=== PATIENT | female | born 1930 | race African-American/Black ===

== ENCOUNTER 2017-01-31 12:30 | Inpatient (IN) ==
[2017-01-31] MEDS ORDERED: DEXTROSE 50% 25 GM/50 ML VIAL IV PRN (12:46)
[2017-01-31] MEDS ORDERED: ALBUTEROL 2.5 MG/3 ML NEB RESP TX PRN (12:46)
[2017-01-31] MEDS ORDERED: GLUCAGON 1 MG VIAL IM PRN (12:46)
[2017-01-31 13:51] LABS: Basophils # 0.1 10*3/uL (0.0-0.2); Basophils % 0.4 % (0.0-0.8); Eosinophils % 0.1 % (0.00-10.9); Hematocrit 35.6 VOL% (35.7-47.0); Hemoglobin 10.9 GM/DL (12.0-16.0); Immature Granulocytes % 0.4 %; Immature Granulocytes Absolute 0.05 #; Lymphocytes % 7.2 % (21.3-54.2); Mean Corpuscular HGB Conc 30.6 GM/DL (32-36); Mean Corpuscular Hemoglobin 28 PG (27-34); Mean Corpuscular Volume 90.1 FL (87-102); Mean Platelet Volume 10.1 FL (9.6-12.0); Monocytes # 0.5 10*3/uL (0.11-0.8); Monocytes % 3.4 % (1.7-12.7); Neutrophils # 11.9 10*3/uL (1.4-7.4); Neutrophils % 88.5 % (38.7-73.9); Platelet Count 338 T/CUMM (130-400); Red Blood Count 3.95 MC/CUMM (3.8-5.5); Red Cell Distribution Width 13.1 % (9.3-17.3); White Blood Count 13.4 T/CUMM (4-12)
[2017-01-31 14:15] LABS: Ammonia 11 UMOL/L (11-32)
[2017-01-31 14:31] LABS: Alanine Aminotransferase 14 U/L (13-56); Albumin 3.7 G/DL (3.4-5.0); Alkaline Phosphatase 78 U/L (45-117); Aspartate Amino Transferase 10 U/L (0-37); Bilirubin,Total < 0.39 MG/DL (0.2-1.0); Blood Urea Nitrogen 15 MG/DL (7-18); Calcium 8.9 MG/DL (8.5-10.1); Glucose 153 MG/DL (74-106); Magnesium 1.9 MG/DL (1.8-2.4); Osmolality,Calculated 284.3 MOS/KG (273-304); Potassium 3.6 MMOL/L (3.5-5.1); Sodium 141 MMOL/L (136-145); Total Protein 7.2 G/DL (6.4-8.3)
[2017-01-31] MEDS ORDERED: ONDANSETRON 4 MG/2 ML VIAL ONE (15:15)
[2017-01-31] MEDS ORDERED: ONDANSETRON 4 MG/2 ML VIAL IV PRN (15:30)
[2017-01-31] MEDS ORDERED: metFORMIN 500 MG TABLET PO SCH (17:00)
[2017-01-31 18:01] LABS: Apearance,Urine CLEAR (Clear); Bilirubin,Urine Negative (Negative); Blood, Urine Negative (Negative); Glucose,Urine (UA) 50 mg/dL (Negative); Hyaline Casts,Urine 1 /LPF (0-3); Ketones,Urine 20 mg/dL (Negative); Mucus,Urine Occasional /LPF (Occasional); Nitrite,Urine Negative (Negative); Protein,Urine Negative; RBC,Urine <1 /HPF (0-4); Squamous Epithelial Cell,Urine Occasional /HPF (0-10); Urine Color Straw (Yellow); Urine Specific Gravity 1.009 (1.001-1.035); Urine Urobilinogen < 2.0 EU/DL (0.2-1.0); WBC,Urine 1 /HPF (0-6)
[2017-01-31] MEDS: levETIRAcetam INJ 500 MG in SODIUM CHLORIDE 0.9% 50 ML IV SCH (18:08)
[2017-01-31 18:13] LABS: Troponin I Only 0.116 NG/ML (0.00-0.045)
[2017-01-31] MEDS ORDERED: amLODIPine 5 MG TABLET PO SCH (18:22)
[2017-01-31] MEDS ORDERED: METOPROLOL SUCCINATE XL 25 MG TABLET PO SCH (18:22)
[2017-01-31] MEDS: DEXTROSE 5% NACL 0.45% 1,000 ML IV SCH (19:08)
[2017-01-31] MEDS: INSULIN REGULAR 100 UNIT/ML SUBCUT SCH ×2 (19:09→20:30)
[2017-01-31] MEDS ORDERED: cloNIDine 0.2 MG/24 HR PATCH TRANSDERM SCH (20:30)
[2017-01-31] MEDS: MEMANTINE 10 MG TABLET PO SCH (20:47)
[2017-02-01] MEDS: levETIRAcetam INJ 500 MG in SODIUM CHLORIDE 0.9% 50 ML IV SCH ×2 (02:02→17:00)
[2017-02-01 04:58] LABS: Basophils # 0.1 10*3/uL (0.0-0.2); Basophils % 0.6 % (0.0-0.8); Eosinophils # 0.1 10*3/uL (0.0-0.87); Eosinophils % 0.9 % (0.00-10.9); Hematocrit 31.3 VOL% (35.7-47.0); Hemoglobin 9.7 GM/DL (12.0-16.0); Immature Granulocytes % 0.3 %; Immature Granulocytes Absolute 0.03 #; Lymphocytes # 1.8 10*3/uL (1.4-4.0); Lymphocytes % 19.5 % (21.3-54.2); Mean Corpuscular Hemoglobin 27 PG (27-34); Mean Corpuscular Volume 88.4 FL (87-102); Mean Platelet Volume 10.4 FL (9.6-12.0); Monocytes # 0.8 10*3/uL (0.11-0.8); Monocytes % 8.6 % (1.7-12.7); Neutrophils # 6.6 10*3/uL (1.4-7.4); Neutrophils % 70.1 % (38.7-73.9); Platelet Count 316 T/CUMM (130-400); Red Blood Count 3.54 MC/CUMM (3.8-5.5); Red Cell Distribution Width 13.3 % (9.3-17.3); White Blood Count 9.4 T/CUMM (4-12)
[2017-02-01 05:30] LABS: Calcium 8.3 MG/DL (8.5-10.1); Magnesium 2.1 MG/DL (1.8-2.4); Osmolality,Calculated 282.4 MOS/KG (273-304); Potassium 3.1 MMOL/L (3.5-5.1); Risk Ratio 2.62; VLDL CHOLESTEROL 18.2 MG/DL
[2017-02-01] MEDS: DEXTROSE 5% NACL 0.45% 1,000 ML IV SCH ×2 (05:34→12:12)
[2017-02-01] MEDS: INSULIN REGULAR 100 UNIT/ML SUBCUT SCH ×4 (08:48→20:30)
[2017-02-01] MEDS: ASPIRIN EC 81 MG TABLET PO SCH (08:49)
[2017-02-01] MEDS: CLOPIDOGREL 75 MG TABLET PO SCH (08:49)
[2017-02-01] MEDS: MAGNESIUM CHLORIDE 64 MG TABLET PO SCH (08:49)
[2017-02-01] MEDS: amLODIPine 10 MG TABLET PO SCH (08:49)
[2017-02-01] MEDS: MEMANTINE 10 MG TABLET PO SCH ×2 (08:49→20:30)
[2017-02-01] MEDS: METOPROLOL SUCCINATE XL 25 MG TABLET PO SCH ×2 (08:50→20:30)
[2017-02-01] MEDS ORDERED: METOPROLOL SUCCINATE XL 25 MG TABLET PO SCH (09:00)
[2017-02-01] MEDS ORDERED: amLODIPine 5 MG TABLET PO SCH (09:00)
[2017-02-01] MEDS: POTASSIUM CHLORIDE 20 MEQ TABLET PO SCH ×2 (14:09→20:30)
[2017-02-02] MEDS: levETIRAcetam INJ 500 MG in SODIUM CHLORIDE 0.9% 50 ML IV SCH ×2 (02:00→15:31)
[2017-02-02] MEDS: DEXTROSE 5% NACL 0.45% 1,000 ML IV SCH ×3 (07:37→10:23)
[2017-02-02] MEDS: amLODIPine 10 MG TABLET PO SCH (09:16)
[2017-02-02] MEDS: CLOPIDOGREL 75 MG TABLET PO SCH (09:16)
[2017-02-02] MEDS: METOPROLOL SUCCINATE XL 25 MG TABLET PO SCH ×2 (09:16→21:01)
[2017-02-02] MEDS: ASPIRIN EC 81 MG TABLET PO SCH (09:16)
[2017-02-02] MEDS: POTASSIUM CHLORIDE 20 MEQ TABLET PO SCH ×2 (09:16→21:02)
[2017-02-02] MEDS: MAGNESIUM CHLORIDE 64 MG TABLET PO SCH (09:16)
[2017-02-02] MEDS: MEMANTINE 10 MG TABLET PO SCH ×2 (09:24→21:01)
[2017-02-02] MEDS: INSULIN REGULAR 100 UNIT/ML SUBCUT SCH ×4 (10:22→22:27)
[2017-02-03] MEDS: levETIRAcetam INJ 500 MG in SODIUM CHLORIDE 0.9% 50 ML IV SCH (02:15)
[2017-02-03] MEDS: INSULIN REGULAR 100 UNIT/ML SUBCUT SCH ×4 (08:38→23:31)
[2017-02-03] MEDS: POTASSIUM CHLORIDE 20 MEQ TABLET PO SCH ×2 (08:47→23:46)
[2017-02-03] MEDS: CLOPIDOGREL 75 MG TABLET PO SCH (08:49)
[2017-02-03] MEDS: MAGNESIUM CHLORIDE 64 MG TABLET PO SCH (08:50)
[2017-02-03] MEDS: amLODIPine 10 MG TABLET PO SCH (08:51)
[2017-02-03] MEDS: METOPROLOL SUCCINATE XL 25 MG TABLET PO SCH ×2 (08:52→23:46)
[2017-02-03] MEDS: MEMANTINE 10 MG TABLET PO SCH ×2 (08:53→23:46)
[2017-02-03] MEDS: ASPIRIN EC 81 MG TABLET PO SCH (08:53)
[2017-02-03] MEDS: DEXTROSE 5% NACL 0.45% 1,000 ML IV SCH (10:50)
[2017-02-03 11:00] LABS: Calcium 8.5 MG/DL (8.5-10.1); Osmolality,Calculated 274.7 MOS/KG (273-304); Potassium 3.8 MMOL/L (3.5-5.1)
[2017-02-04] MEDS: amLODIPine 10 MG TABLET PO SCH (09:53)
[2017-02-04] MEDS: INSULIN REGULAR 100 UNIT/ML SUBCUT SCH (09:53)
[2017-02-04] MEDS: POTASSIUM CHLORIDE 20 MEQ TABLET PO SCH (09:53)
[2017-02-04] MEDS: MEMANTINE 10 MG TABLET PO SCH (09:54)
[2017-02-04] MEDS: METOPROLOL SUCCINATE XL 25 MG TABLET PO SCH (09:54)
[2017-02-04] MEDS: MAGNESIUM CHLORIDE 64 MG TABLET PO SCH (09:54)
[2017-02-04] MEDS: ASPIRIN EC 81 MG TABLET PO SCH (09:54)
[2017-02-04] MEDS: CLOPIDOGREL 75 MG TABLET PO SCH (09:54)
[2017-02-04 12:04] VITALS: BP 149/74
== END 2017-02-04 15:13 | disposition home or self-care (01) | DRG 312 ==
LOC: N.ICU 13:02 → N.2E 02-01 11:39
PROVIDERS: ADMIT Internal Medicine Pulmonary Disease; ATTEND Internal Medicine Pulmonary Disease

== ENCOUNTER 2017-12-23 14:18 | Inpatient (IN) ==
[2017-12-23] MEDS ORDERED: CLINDAMYCIN INJ 600 MG in PREMIX 1 EACH IV STA (14:53)
[2017-12-23] MEDS ORDERED: DEXTROSE 50% 25 GM/50 ML VIAL IV PRN ×2 (16:39→18:47)
[2017-12-23] MEDS ORDERED: GLUCAGON 1 MG VIAL IM PRN ×2 (16:39→18:47)
[2017-12-23 16:43] LABS: Basophils # 0.1 10*3/uL (0.0-0.2); Basophils % 0.5 % (0.0-0.8); Eosinophils # 0.6 10*3/uL (0.0-0.87); Eosinophils % 4.4 % (0.00-10.9); Hematocrit 28.3 VOL% (35.7-47.0); Hemoglobin 8.2 GM/DL (12.0-16.0); Immature Granulocytes % 0.8 %; Immature Granulocytes Absolute 0.12 #; Lymphocytes # 2.1 10*3/uL (1.4-4.0); Lymphocytes % 14.4 % (21.3-54.2); Mean Corpuscular Hemoglobin 26 PG (27-34); Mean Platelet Volume 8.9 FL (9.6-12.0); Monocytes # 1.1 10*3/uL (0.11-0.8); Monocytes % 7.6 % (1.7-12.7); Neutrophils # 10.3 10*3/uL (1.4-7.4); Neutrophils % 72.3 % (38.7-73.9); Platelet Count 695 T/CUMM (130-400); Red Blood Count 3.18 MC/CUMM (3.8-5.5); Red Cell Distribution Width 14.9 % (9.3-17.3); White Blood Count 14.2 T/CUMM (4-12)
[2017-12-23 17:02] LABS: Alanine Aminotransferase 10 U/L (13-56); Albumin 2.6 G/DL (3.4-5.0); Alkaline Phosphatase 124 U/L (45-117); Aspartate Amino Transferase 8 U/L (0-37); Bilirubin,Total < 0.39 MG/DL (0.2-1.0); Blood Urea Nitrogen 11 MG/DL (7-18); Calcium 8.7 MG/DL (8.5-10.1); Glucose 120 MG/DL (74-106); Osmolality,Calculated 274.7 MOS/KG (273-304); Potassium 3.4 MMOL/L (3.5-5.1); Sodium 138 MMOL/L (136-145)
[2017-12-23 17:03] LABS: Lactic Acid 2.9 MMOL/L (0.4-2.0)
[2017-12-23 17:05] LABS: Apearance,Urine CLEAR (Clear); Bilirubin,Urine Negative (Negative); Blood, Urine Negative (Negative); Glucose,Urine (UA) Negative (Negative); Hyaline Casts,Urine 1 /LPF (0-3); Ketones,Urine Negative (Negative); Mucus,Urine Occasional /LPF (Occasional); Nitrite,Urine Negative (Negative); Protein,Urine Negative; RBC,Urine <1 /HPF (0-4); Urine Color Yellow (Yellow); Urine Specific Gravity 1.011 (1.001-1.035); Urine Urobilinogen < 2.0 EU/DL (0.2-1.0); WBC,Urine <1 /HPF (0-6)
[2017-12-23] MEDS ORDERED: SODIUM CHLORIDE 0.9% 1,650 ML IV ONE (17:43)
[2017-12-23] MEDS ORDERED: MORPHINE PCA 30 MG/30 ML SYRINGE IV SCH (18:30)
[2017-12-23] MEDS ORDERED: MORPHINE 4 MG/1 ML VIAL IV STA (19:48)
[2017-12-23] MEDS ORDERED: ONDANSETRON 4 MG/2 ML VIAL IV PRN (19:48)
[2017-12-23] MEDS ORDERED: MORPHINE 4 MG/1 ML VIAL IV PRN (19:48)
[2017-12-23] MEDS: PENTOXIFYLLINE 400 MG TABLET PO SCH (22:00)
[2017-12-23] MEDS: GABAPENTIN 100 MG CAPSULE PO SCH (22:01)
[2017-12-23] MEDS: ENOXAPARIN 40 MG/0.4 ML SYRINGE SUBCUT SCH (22:02)
[2017-12-23] MEDS: INSULIN REGULAR 100 UNIT/ML SUBCUT SCH (22:02)
[2017-12-23] MEDS: VANCOMYCIN INJ 1,000 MG in SODIUM CHLORIDE 0.9% 250 ML IV SCH (22:03)
[2017-12-23] MEDS: SODIUM CHLOR 0.9% KCL 20 MEQ 20 MEQ/1,000 ML BAG IV SCH (22:03)
[2017-12-23 22:23] LABS: Lactic Acid 3.3 MMOL/L (0.4-2.0)
[2017-12-23] MEDS ORDERED: LORazepam 2 MG/1 ML VIAL IV ONE (23:41)
[2017-12-24] MEDS ORDERED: SODIUM CHLORIDE 23.4% CONC INJ 38.5 MEQ in STERILE WATER INJ 1,000 ML IV SCH
[2017-12-24] MEDS ORDERED: VANCOMYCIN INJ 750 MG in SODIUM CHLORIDE 0.9% 250 ML IV SCH
[2017-12-24 00:50] LABS: Basophils % 0.3 % (0.0-0.8); Eosinophils # 0.5 10*3/uL (0.0-0.87); Eosinophils % 3.4 % (0.00-10.9); Hematocrit 24.4 VOL% (35.7-47.0); Hemoglobin 7.5 GM/DL (12.0-16.0); Immature Granulocytes % 0.9 %; Immature Granulocytes Absolute 0.12 #; Lymphocytes # 2.1 10*3/uL (1.4-4.0); Lymphocytes % 15.1 % (21.3-54.2); Mean Corpuscular HGB Conc 30.7 GM/DL (32-36); Mean Corpuscular Hemoglobin 27 PG (27-34); Mean Corpuscular Volume 86.5 FL (87-102); Monocytes # 1.1 10*3/uL (0.11-0.8); Monocytes % 8.2 % (1.7-12.7); Neutrophils # 9.8 10*3/uL (1.4-7.4); Neutrophils % 72.1 % (38.7-73.9); Platelet Count 694 T/CUMM (130-400); Red Blood Count 2.82 MC/CUMM (3.8-5.5); White Blood Count 13.6 T/CUMM (4-12)
[2017-12-24 01:02] LABS: Osmolality,Calculated 276.5 MOS/KG (273-304); Potassium 3.5 MMOL/L (3.5-5.1)
[2017-12-24] MEDS: PIPERACILLIN/TAZOBACTAM 3,375 MG in SODIUM CHLORIDE 0.9% 100 ML IV SCH ×3 (02:39→18:26)
[2017-12-24] MEDS ORDERED: SODIUM CHLORIDE 0.9% 1,000 ML IV PRN (07:07)
[2017-12-24] MEDS: SODIUM CHLOR 0.9% KCL 20 MEQ 20 MEQ/1,000 ML BAG IV SCH ×3 (07:39→20:22)
[2017-12-24] MEDS: INSULIN REGULAR 100 UNIT/ML SUBCUT SCH ×4 (08:35→20:58)
[2017-12-24] MEDS ORDERED: CYANOCOBALAMIN 1000 MCG/1 ML VIAL SUBCUT SCH (09:00)
[2017-12-24] MEDS: MAGNESIUM CHLORIDE 64 MG TABLET PO SCH ×2 (10:29→12:23)
[2017-12-24] MEDS: amLODIPine 10 MG TABLET PO SCH ×2 (10:29→12:22)
[2017-12-24] MEDS: GABAPENTIN 100 MG CAPSULE PO SCH ×3 (10:29→20:22)
[2017-12-24] MEDS: PANTOPRAZOLE 40 MG TABLET PO SCH ×2 (10:29→12:22)
[2017-12-24] MEDS: CLOPIDOGREL 75 MG TABLET PO SCH ×2 (10:29→10:51)
[2017-12-24] MEDS: METOPROLOL SUCCINATE XL 25 MG TABLET PO SCH ×2 (10:29→12:23)
[2017-12-24] MEDS: PENTOXIFYLLINE 400 MG TABLET PO SCH ×3 (10:29→20:22)
[2017-12-24] MEDS: MORPHINE 4 MG/1 ML VIAL IV PRN ×4 (10:44→23:10)
[2017-12-24] MEDS: VANCOMYCIN INJ 1,000 MG in SODIUM CHLORIDE 0.9% 250 ML IV SCH (14:30)
[2017-12-24] MEDS: ENOXAPARIN 40 MG/0.4 ML SYRINGE SUBCUT SCH (20:27)
[2017-12-25] MEDS: PIPERACILLIN/TAZOBACTAM 3,375 MG in SODIUM CHLORIDE 0.9% 100 ML IV SCH ×3 (03:11→20:11)
[2017-12-25] MEDS: MORPHINE 4 MG/1 ML VIAL IV PRN ×3 (04:04→20:30)
[2017-12-25] MEDS: INSULIN REGULAR 100 UNIT/ML SUBCUT SCH ×4 (08:12→21:38)
[2017-12-25] MEDS: amLODIPine 10 MG TABLET PO SCH (08:33)
[2017-12-25] MEDS: METOPROLOL SUCCINATE XL 25 MG TABLET PO SCH (08:41)
[2017-12-25] MEDS: MAGNESIUM CHLORIDE 64 MG TABLET PO SCH (08:41)
[2017-12-25] MEDS: GABAPENTIN 100 MG CAPSULE PO SCH ×2 (08:41→20:29)
[2017-12-25] MEDS: PANTOPRAZOLE 40 MG TABLET PO SCH (08:41)
[2017-12-25] MEDS: VANCOMYCIN INJ 1,000 MG in SODIUM CHLORIDE 0.9% 250 ML IV SCH (08:42)
[2017-12-25] MEDS: PENTOXIFYLLINE 400 MG TABLET PO SCH ×2 (08:42→20:29)
[2017-12-25 08:57] LABS: Basophils # 0.1 10*3/uL (0.0-0.2); Basophils % 0.4 % (0.0-0.8); Eosinophils # 0.4 10*3/uL (0.0-0.87); Eosinophils % 2.5 % (0.00-10.9); Hematocrit 39.5 VOL% (35.7-47.0); Immature Granulocytes % 0.8 %; Immature Granulocytes Absolute 0.12 #; Lymphocytes # 1.3 10*3/uL (1.4-4.0); Lymphocytes % 8.8 % (21.3-54.2); Mean Corpuscular HGB Conc 30.1 GM/DL (32-36); Mean Corpuscular Hemoglobin 26 PG (27-34); Mean Corpuscular Volume 87.8 FL (87-102); Mean Platelet Volume 8.9 FL (9.6-12.0); Monocytes # 0.8 10*3/uL (0.11-0.8); Monocytes % 5.5 % (1.7-12.7); Neutrophils # 11.9 10*3/uL (1.4-7.4); Platelet Count 665 T/CUMM (130-400); Red Cell Distribution Width 16.4 % (9.3-17.3); White Blood Count 14.5 T/CUMM (4-12)
[2017-12-25 09:03] LABS: INR 0.9; PT Patient Result 9.9 SECS
[2017-12-25 09:09] LABS: Hemoglobin 11.9 GM/DL (12.0-16.0)
[2017-12-25 09:23] LABS: Calcium 8.9 MG/DL (8.5-10.1); Osmolality,Calculated 279.4 MOS/KG (273-304); Potassium 3.8 MMOL/L (3.5-5.1)
[2017-12-25] MEDS: SODIUM CHLOR 0.9% KCL 20 MEQ 20 MEQ/1,000 ML BAG IV SCH ×3 (10:26→20:38)
[2017-12-25] MEDS: SERTRALINE 25 MG TABLET PO SCH (11:02)
[2017-12-25] MEDS ORDERED: LORazepam 2 MG/1 ML VIAL IV ONE (12:16)
[2017-12-25] MEDS ORDERED: MIDAZOLAM 2 MG/2 ML VIAL IV ONE (13:44)
[2017-12-25] MEDS ORDERED: fentaNYL 100 MCG/2 ML VIAL IV ONE (13:44)
[2017-12-25] MEDS ORDERED: MIDAZOLAM 2 MG/2 ML VIAL ONE (13:50)
[2017-12-25] MEDS ORDERED: fentaNYL 100 MCG/2 ML VIAL ONE (13:50)
[2017-12-25] MEDS ORDERED: HEPARIN 5,000 UNIT/1 ML VIAL ONE (13:51)
[2017-12-25] MEDS ORDERED: HEPARIN/NACL 0.9% 2 UNITS/ML 1,000 ML IV ONE (14:05)
[2017-12-25] MEDS: SODIUM CHLORIDE 0.45% 1,000 ML IV SCH (15:54)
[2017-12-25] MEDS: ENOXAPARIN 40 MG/0.4 ML SYRINGE SUBCUT SCH (20:36)
[2017-12-25] MEDS ORDERED: HALOPERIDOL 5 MG/ML AMP IM ONE (20:54)
[2017-12-26] MEDS: PIPERACILLIN/TAZOBACTAM 3,375 MG in SODIUM CHLORIDE 0.9% 100 ML IV SCH ×3 (01:30→18:39)
[2017-12-26] MEDS: MORPHINE 4 MG/1 ML VIAL IV PRN ×2 (02:10→06:08)
[2017-12-26] MEDS: SODIUM CHLOR 0.9% KCL 20 MEQ 20 MEQ/1,000 ML BAG IV SCH ×2 (05:12→17:36)
[2017-12-26] MEDS: VANCOMYCIN INJ 1,000 MG in SODIUM CHLORIDE 0.9% 250 ML IV SCH (05:37)
[2017-12-26] MEDS: INSULIN REGULAR 100 UNIT/ML SUBCUT SCH ×4 (07:13→21:06)
[2017-12-26] MEDS ORDERED: LORazepam 2 MG/1 ML VIAL ONE (08:56)
[2017-12-26] MEDS: MAGNESIUM CHLORIDE 64 MG TABLET PO SCH (09:00)
[2017-12-26] MEDS: PANTOPRAZOLE 40 MG TABLET PO SCH (09:00)
[2017-12-26] MEDS: PENTOXIFYLLINE 400 MG TABLET PO SCH ×2 (09:00→21:06)
[2017-12-26] MEDS: GABAPENTIN 100 MG CAPSULE PO SCH ×2 (09:00→21:05)
[2017-12-26] MEDS: SERTRALINE 25 MG TABLET PO SCH (09:00)
[2017-12-26] MEDS ORDERED: LORazepam 2 MG/1 ML VIAL IV ONE (09:23)
[2017-12-26] MEDS ORDERED: HEPARIN/NACL 0.9% 2 UNITS/ML 1,000 ML IV ONE ×2 (12:07→12:08)
[2017-12-26] MEDS ORDERED: HEPARIN 1,000 UNIT/1 ML VIAL ONE (13:32)
[2017-12-26] MEDS ORDERED: HEPARIN 5,000 UNIT/1 ML VIAL IV PRN (13:36)
[2017-12-26] MEDS ORDERED: GLUCAGON 1 MG VIAL IM PRN (18:58)
[2017-12-26] MEDS ORDERED: DEXTROSE 50% 25 GM/50 ML VIAL IV PRN (18:58)
[2017-12-26] MEDS: METOPROLOL SUCCINATE XL 25 MG TABLET PO SCH (19:03)
[2017-12-26] MEDS: amLODIPine 10 MG TABLET PO SCH (19:03)
[2017-12-26] MEDS: SODIUM CHLORIDE 0.45% 1,000 ML IV SCH (19:43)
[2017-12-26] MEDS: ENOXAPARIN 40 MG/0.4 ML SYRINGE SUBCUT SCH (21:06)
[2017-12-27] MEDS: VANCOMYCIN INJ 1,000 MG in SODIUM CHLORIDE 0.9% 250 ML IV SCH ×2 (00:48→22:00)
[2017-12-27] MEDS: PIPERACILLIN/TAZOBACTAM 3,375 MG in SODIUM CHLORIDE 0.9% 100 ML IV SCH ×3 (03:22→18:02)
[2017-12-27] MEDS: SODIUM CHLOR 0.9% KCL 20 MEQ 20 MEQ/1,000 ML BAG IV SCH (04:04)
[2017-12-27 06:39] LABS: Basophils # 0.1 10*3/uL (0.0-0.2); Basophils % 0.3 % (0.0-0.8); Eosinophils # 0.3 10*3/uL (0.0-0.87); Eosinophils % 1.5 % (0.00-10.9); Hematocrit 34.3 VOL% (35.7-47.0); Hemoglobin 10.6 GM/DL (12.0-16.0); Immature Granulocytes % 0.6 %; Immature Granulocytes Absolute 0.11 #; Lymphocytes # 1.7 10*3/uL (1.4-4.0); Lymphocytes % 9.2 % (21.3-54.2); Mean Corpuscular HGB Conc 30.9 GM/DL (32-36); Mean Corpuscular Hemoglobin 27 PG (27-34); Mean Corpuscular Volume 86.4 FL (87-102); Mean Platelet Volume 8.6 FL (9.6-12.0); Monocytes # 1.3 10*3/uL (0.11-0.8); Monocytes % 6.6 % (1.7-12.7); Neutrophils # 15.4 10*3/uL (1.4-7.4); Neutrophils % 81.8 % (38.7-73.9); Platelet Count 612 T/CUMM (130-400); Red Blood Count 3.97 MC/CUMM (3.8-5.5); Red Cell Distribution Width 15.7 % (9.3-17.3); White Blood Count 18.8 T/CUMM (4-12)
[2017-12-27 07:00] LABS: Albumin 2.1 G/DL (3.4-5.0); Bilirubin,Total 0.9 MG/DL (0.2-1.0); Calcium 8.3 MG/DL (8.5-10.1); Osmolality,Calculated 276.5 MOS/KG (273-304); Potassium 3.1 MMOL/L (3.5-5.1); Total Protein 6.5 G/DL (6.4-8.3)
[2017-12-27] MEDS ORDERED: POTASSIUM PHOSPHATE 30 MMOL in SODIUM CHLORIDE 0.9% 250 ML IV ONE (08:00)
[2017-12-27] MEDS: MEROPENEM 500 MG in SODIUM CHLORIDE 0.9% 100 ML IV SCH ×2 (09:35→16:21)
[2017-12-27] MEDS: INSULIN REGULAR 100 UNIT/ML SUBCUT SCH ×4 (09:40→21:31)
[2017-12-27] MEDS: GABAPENTIN 100 MG CAPSULE PO SCH ×2 (10:30→21:30)
[2017-12-27] MEDS: amLODIPine 10 MG TABLET PO SCH (10:30)
[2017-12-27] MEDS: PANTOPRAZOLE 40 MG TABLET PO SCH (10:31)
[2017-12-27] MEDS: SERTRALINE 25 MG TABLET PO SCH (10:31)
[2017-12-27] MEDS: METOPROLOL SUCCINATE XL 25 MG TABLET PO SCH (10:31)
[2017-12-27] MEDS: MAGNESIUM CHLORIDE 64 MG TABLET PO SCH (10:31)
[2017-12-27] MEDS: PENTOXIFYLLINE 400 MG TABLET PO SCH ×2 (10:31→21:31)
[2017-12-27] MEDS: SODIUM CHLORIDE 0.45% 1,000 ML IV SCH ×2 (16:21→22:20)
[2017-12-27] MEDS: ENOXAPARIN 40 MG/0.4 ML SYRINGE SUBCUT SCH (21:31)
[2017-12-28] MEDS: MEROPENEM 500 MG in SODIUM CHLORIDE 0.9% 100 ML IV SCH ×3 (00:26→17:33)
[2017-12-28] MEDS: SODIUM CHLORIDE 0.45% 1,000 ML IV SCH ×3 (00:27→17:39)
[2017-12-28] MEDS: PIPERACILLIN/TAZOBACTAM 3,375 MG in SODIUM CHLORIDE 0.9% 100 ML IV SCH ×3 (03:19→21:30)
[2017-12-28 06:34] LABS: Basophils # 0.1 10*3/uL (0.0-0.2); Basophils % 0.3 % (0.0-0.8); Eosinophils # 0.3 10*3/uL (0.0-0.87); Eosinophils % 1.6 % (0.00-10.9); Hematocrit 33.4 VOL% (35.7-47.0); Hemoglobin 10.1 GM/DL (12.0-16.0); Immature Granulocytes % 0.6 %; Lymphocytes # 1.4 10*3/uL (1.4-4.0); Mean Corpuscular HGB Conc 30.2 GM/DL (32-36); Mean Corpuscular Hemoglobin 26 PG (27-34); Mean Corpuscular Volume 86.8 FL (87-102); Mean Platelet Volume 8.8 FL (9.6-12.0); Monocytes % 5.8 % (1.7-12.7); Neutrophils # 14.6 10*3/uL (1.4-7.4); Neutrophils % 83.7 % (38.7-73.9); Platelet Count 555 T/CUMM (130-400); Red Blood Count 3.85 MC/CUMM (3.8-5.5); Red Cell Distribution Width 15.7 % (9.3-17.3); White Blood Count 17.5 T/CUMM (4-12)
[2017-12-28 07:01] LABS: Bilirubin,Total 0.5 MG/DL (0.2-1.0); Osmolality,Calculated 275.5 MOS/KG (273-304); Potassium 3.1 MMOL/L (3.5-5.1); Total Protein 6.3 G/DL (6.4-8.3)
[2017-12-28] MEDS: INSULIN REGULAR 100 UNIT/ML SUBCUT SCH ×4 (07:15→21:30)
[2017-12-28] MEDS: GABAPENTIN 100 MG CAPSULE PO SCH ×2 (09:09→21:30)
[2017-12-28] MEDS: amLODIPine 10 MG TABLET PO SCH (09:09)
[2017-12-28] MEDS: MAGNESIUM CHLORIDE 64 MG TABLET PO SCH (09:10)
[2017-12-28] MEDS: PENTOXIFYLLINE 400 MG TABLET PO SCH ×2 (09:10→21:30)
[2017-12-28] MEDS: SERTRALINE 25 MG TABLET PO SCH (09:10)
[2017-12-28] MEDS: PANTOPRAZOLE 40 MG TABLET PO SCH (09:10)
[2017-12-28] MEDS: METOPROLOL SUCCINATE XL 25 MG TABLET PO SCH (09:10)
[2017-12-28] MEDS ORDERED: POTASSIUM CHLORIDE RIDER 20 MEQ in PREMIX 1 EACH IV PRN (09:45)
[2017-12-28] MEDS ORDERED: MAGNESIUM SULF RIDER 2 GM in PREMIX 1 EACH IV ONE (09:45)
[2017-12-28] MEDS: VANCOMYCIN INJ 1,000 MG in SODIUM CHLORIDE 0.9% 250 ML IV SCH ×2 (10:26→23:43)
[2017-12-28] MEDS: POTASSIUM CHLORIDE RIDER 10 MEQ in PREMIX 1 EACH IV PRN ×4 (13:44→21:30)
[2017-12-28] MEDS: ENOXAPARIN 40 MG/0.4 ML SYRINGE SUBCUT SCH (21:30)
[2017-12-29] MEDS: hydrALAZINE 20 MG/1 ML VIAL IV PRN (00:07)
[2017-12-29] MEDS: MORPHINE 4 MG/1 ML VIAL IV PRN ×4 (00:54→23:41)
[2017-12-29] MEDS: MEROPENEM 500 MG in SODIUM CHLORIDE 0.9% 100 ML IV SCH ×2 (00:57→08:57)
[2017-12-29] MEDS: PIPERACILLIN/TAZOBACTAM 3,375 MG in SODIUM CHLORIDE 0.9% 100 ML IV SCH ×3 (05:10→21:02)
[2017-12-29] MEDS: SODIUM CHLORIDE 0.45% 1,000 ML IV SCH ×2 (06:32→21:01)
[2017-12-29] MEDS: INSULIN REGULAR 100 UNIT/ML SUBCUT SCH ×4 (07:39→21:01)
[2017-12-29 07:46] LABS: Basophils # 0.1 10*3/uL (0.0-0.2); Basophils % 0.5 % (0.0-0.8); Eosinophils # 0.5 10*3/uL (0.0-0.87); Eosinophils % 3.1 % (0.00-10.9); Hematocrit 30.6 VOL% (35.7-47.0); Hemoglobin 9.2 GM/DL (12.0-16.0); Immature Granulocytes % 0.8 %; Immature Granulocytes Absolute 0.13 #; Lymphocytes # 1.5 10*3/uL (1.4-4.0); Lymphocytes % 9.2 % (21.3-54.2); Mean Corpuscular HGB Conc 30.1 GM/DL (32-36); Mean Corpuscular Hemoglobin 26 PG (27-34); Mean Corpuscular Volume 86.4 FL (87-102); Mean Platelet Volume 8.9 FL (9.6-12.0); Monocytes # 1.1 10*3/uL (0.11-0.8); Monocytes % 6.6 % (1.7-12.7); Neutrophils # 13.2 10*3/uL (1.4-7.4); Neutrophils % 79.8 % (38.7-73.9); Platelet Count 527 T/CUMM (130-400); Red Blood Count 3.54 MC/CUMM (3.8-5.5); Red Cell Distribution Width 15.4 % (9.3-17.3); White Blood Count 16.5 T/CUMM (4-12)
[2017-12-29 08:06] LABS: Albumin 1.7 G/DL (3.4-5.0); Bilirubin,Total 0.4 MG/DL (0.2-1.0); Calcium 7.9 MG/DL (8.5-10.1); Osmolality,Calculated 277.3 MOS/KG (273-304); Potassium 3.3 MMOL/L (3.5-5.1); Total Protein 5.5 G/DL (6.4-8.3)
[2017-12-29] MEDS: POTASSIUM CHLORIDE RIDER 10 MEQ in PREMIX 1 EACH IV PRN ×4 (09:52→15:01)
[2017-12-29] MEDS: PENTOXIFYLLINE 400 MG TABLET PO SCH ×2 (10:00→21:04)
[2017-12-29] MEDS: PANTOPRAZOLE 40 MG TABLET PO SCH (10:00)
[2017-12-29] MEDS: SERTRALINE 25 MG TABLET PO SCH ×2 (10:00→17:17)
[2017-12-29] MEDS: GABAPENTIN 100 MG CAPSULE PO SCH ×2 (10:00→21:04)
[2017-12-29] MEDS: MAGNESIUM CHLORIDE 64 MG TABLET PO SCH (10:00)
[2017-12-29] MEDS: METOPROLOL SUCCINATE XL 25 MG TABLET PO SCH (10:35)
[2017-12-29] MEDS: amLODIPine 10 MG TABLET PO SCH (10:35)
[2017-12-29] MEDS ORDERED: VANCOMYCIN 1,000 MG VIAL ONE (11:13)
[2017-12-29] MEDS: VANCOMYCIN INJ 1,000 MG in SODIUM CHLORIDE 0.9% 250 ML IV SCH ×2 (11:24→23:26)
[2017-12-29] MEDS ORDERED: LIDOCAINE 1% 20 ML VIAL ONE (11:27)
[2017-12-29] MEDS ORDERED: PROPOFOL 200 MG/20 ML VIAL IV ONE (12:41)
[2017-12-29] MEDS ORDERED: SEVOFLURANE 1 UNIT/15 MINUTE INH ONE (12:41)
[2017-12-29] MEDS ORDERED: fentaNYL 100 MCG/2 ML VIAL ONE (12:41)
[2017-12-29] MEDS ORDERED: ONDANSETRON 4 MG/2 ML VIAL ONE ×2 (12:42→12:43)
[2017-12-29] MEDS ORDERED: MEPERIDINE 25 MG/1 ML VIAL ONE ×2 (12:43→13:17)
[2017-12-29] MEDS: MEPERIDINE 25 MG/1 ML VIAL IV PRN ×2 (12:43→13:20)
[2017-12-29] MEDS ORDERED: ONDANSETRON 4 MG/2 ML VIAL IV PRN (12:57)
[2017-12-29] MEDS ORDERED: GLUCAGON 1 MG VIAL IM PRN (14:12)
[2017-12-29] MEDS ORDERED: DEXTROSE 50% 25 GM/50 ML VIAL IV PRN (14:12)
[2017-12-29] MEDS: ENOXAPARIN 40 MG/0.4 ML SYRINGE SUBCUT SCH (21:04)
[2017-12-29] MEDS: SODIUM CHLOR 0.9% KCL 20 MEQ 20 MEQ/1,000 ML BAG IV SCH (22:43)
[2017-12-30] MEDS: VANCOMYCIN INJ 1,000 MG in SODIUM CHLORIDE 0.9% 250 ML IV SCH (03:28)
[2017-12-30] MEDS: hydrALAZINE 20 MG/1 ML VIAL IV PRN (03:47)
[2017-12-30] MEDS: PIPERACILLIN/TAZOBACTAM 3,375 MG in SODIUM CHLORIDE 0.9% 100 ML IV SCH ×3 (04:52→20:11)
[2017-12-30] MEDS: SODIUM CHLORIDE 0.45% 1,000 ML IV SCH ×3 (06:19→21:51)
[2017-12-30] MEDS: INSULIN REGULAR 100 UNIT/ML SUBCUT SCH ×4 (07:55→20:18)
[2017-12-30] MEDS: MORPHINE 4 MG/1 ML VIAL IV PRN ×2 (09:31→21:47)
[2017-12-30] MEDS: PENTOXIFYLLINE 400 MG TABLET PO SCH ×2 (09:32→21:47)
[2017-12-30] MEDS: SERTRALINE 25 MG TABLET PO SCH (09:32)
[2017-12-30] MEDS: MAGNESIUM CHLORIDE 64 MG TABLET PO SCH (09:32)
[2017-12-30] MEDS: METOPROLOL SUCCINATE XL 25 MG TABLET PO SCH (09:32)
[2017-12-30] MEDS: PANTOPRAZOLE 40 MG TABLET PO SCH (09:32)
[2017-12-30] MEDS: GABAPENTIN 100 MG CAPSULE PO SCH ×2 (09:32→21:47)
[2017-12-30 09:36] LABS: Basophils # 0.1 10*3/uL (0.0-0.2); Basophils % 0.6 % (0.0-0.8); Eosinophils # 0.5 10*3/uL (0.0-0.87); Eosinophils % 3.3 % (0.00-10.9); Hematocrit 32.6 VOL% (35.7-47.0); Hemoglobin 9.8 GM/DL (12.0-16.0); Immature Granulocytes % 0.5 %; Immature Granulocytes Absolute 0.08 #; Lymphocytes # 1.2 10*3/uL (1.4-4.0); Lymphocytes % 7.8 % (21.3-54.2); Mean Corpuscular HGB Conc 30.1 GM/DL (32-36); Mean Corpuscular Hemoglobin 26 PG (27-34); Mean Corpuscular Volume 87.6 FL (87-102); Monocytes % 6.5 % (1.7-12.7); Neutrophils % 81.3 % (38.7-73.9); Platelet Count 542 T/CUMM (130-400); Red Blood Count 3.72 MC/CUMM (3.8-5.5); Red Cell Distribution Width 15.4 % (9.3-17.3)
[2017-12-30] MEDS: amLODIPine 10 MG TABLET PO SCH (09:42)
[2017-12-30 09:51] LABS: Calcium 8.3 MG/DL (8.5-10.1); Osmolality,Calculated 280.4 MOS/KG (273-304); Potassium 3.4 MMOL/L (3.5-5.1)
[2017-12-30] MEDS: ENOXAPARIN 40 MG/0.4 ML SYRINGE SUBCUT SCH (20:10)
[2017-12-31] MEDS: VANCOMYCIN INJ 1,000 MG in SODIUM CHLORIDE 0.9% 250 ML IV SCH ×2 (00:18→19:00)
[2017-12-31] MEDS: PIPERACILLIN/TAZOBACTAM 3,375 MG in SODIUM CHLORIDE 0.9% 100 ML IV SCH ×3 (04:54→21:15)
[2017-12-31 05:47] LABS: Basophils # 0.1 10*3/uL (0.0-0.2); Basophils % 0.6 % (0.0-0.8); Eosinophils # 0.3 10*3/uL (0.0-0.87); Eosinophils % 2.5 % (0.00-10.9); Hematocrit 29.7 VOL% (35.7-47.0); Hemoglobin 8.7 GM/DL (12.0-16.0); Immature Granulocytes % 0.5 %; Immature Granulocytes Absolute 0.07 #; Lymphocytes # 1.3 10*3/uL (1.4-4.0); Lymphocytes % 9.8 % (21.3-54.2); Mean Corpuscular HGB Conc 29.3 GM/DL (32-36); Mean Corpuscular Hemoglobin 26 PG (27-34); Mean Corpuscular Volume 87.9 FL (87-102); Mean Platelet Volume 8.9 FL (9.6-12.0); Monocytes % 7.6 % (1.7-12.7); Neutrophils # 10.3 10*3/uL (1.4-7.4); Platelet Count 508 T/CUMM (130-400); Red Blood Count 3.38 MC/CUMM (3.8-5.5); Red Cell Distribution Width 15.5 % (9.3-17.3)
[2017-12-31 06:03] LABS: Calcium 8.4 MG/DL (8.5-10.1); Potassium 2.9 MMOL/L (3.5-5.1)
[2017-12-31] MEDS: POTASSIUM CHLORIDE RIDER 10 MEQ in PREMIX 1 EACH IV PRN ×5 (07:07→13:35)
[2017-12-31] MEDS ORDERED: POTASSIUM CHLORIDE 20 MEQ TABLET PO PRN (07:13)
[2017-12-31] MEDS: INSULIN REGULAR 100 UNIT/ML SUBCUT SCH ×4 (08:12→21:16)
[2017-12-31] MEDS: METOPROLOL SUCCINATE XL 25 MG TABLET PO SCH (11:43)
[2017-12-31] MEDS: SERTRALINE 25 MG TABLET PO SCH (11:44)
[2017-12-31] MEDS: amLODIPine 10 MG TABLET PO SCH (11:44)
[2017-12-31] MEDS: PENTOXIFYLLINE 400 MG TABLET PO SCH ×2 (11:44→21:16)
[2017-12-31] MEDS: GABAPENTIN 100 MG CAPSULE PO SCH ×2 (11:48→21:16)
[2017-12-31] MEDS: MAGNESIUM CHLORIDE 64 MG TABLET PO SCH (11:49)
[2017-12-31] MEDS: PANTOPRAZOLE 40 MG TABLET PO SCH (11:49)
[2017-12-31] MEDS: MORPHINE 4 MG/1 ML VIAL IV PRN (13:41)
[2017-12-31] MEDS: SODIUM CHLORIDE 0.45% 1,000 ML IV SCH (21:15)
[2017-12-31] MEDS: ENOXAPARIN 40 MG/0.4 ML SYRINGE SUBCUT SCH (21:16)
[2018-01-01] MEDS: PIPERACILLIN/TAZOBACTAM 3,375 MG in SODIUM CHLORIDE 0.9% 100 ML IV SCH ×2 (04:58→15:49)
[2018-01-01] MEDS: SODIUM CHLORIDE 0.45% 1,000 ML IV SCH ×2 (05:09→18:20)
[2018-01-01 07:34] LABS: Basophils # 0.1 10*3/uL (0.0-0.2); Basophils % 0.9 % (0.0-0.8); Eosinophils # 0.2 10*3/uL (0.0-0.87); Hematocrit 29.6 VOL% (35.7-47.0); Hemoglobin 8.9 GM/DL (12.0-16.0); Immature Granulocytes % 0.6 %; Immature Granulocytes Absolute 0.07 #; Lymphocytes # 1.6 10*3/uL (1.4-4.0); Mean Corpuscular HGB Conc 30.1 GM/DL (32-36); Mean Corpuscular Hemoglobin 26 PG (27-34); Mean Corpuscular Volume 87.1 FL (87-102); Mean Platelet Volume 9.1 FL (9.6-12.0); Monocytes # 1.1 10*3/uL (0.11-0.8); Monocytes % 8.7 % (1.7-12.7); Neutrophils # 9.2 10*3/uL (1.4-7.4); Neutrophils % 74.8 % (38.7-73.9); Platelet Count 506 T/CUMM (130-400); Red Cell Distribution Width 15.6 % (9.3-17.3); White Blood Count 12.3 T/CUMM (4-12)
[2018-01-01 07:55] LABS: Calcium 8.4 MG/DL (8.5-10.1); Osmolality,Calculated 280.1 MOS/KG (273-304); Potassium 2.9 MMOL/L (3.5-5.1)
[2018-01-01] MEDS: INSULIN REGULAR 100 UNIT/ML SUBCUT SCH ×4 (08:04→21:14)
[2018-01-01] MEDS: POTASSIUM CHLORIDE RIDER 10 MEQ in PREMIX 1 EACH IV PRN ×5 (08:46→14:51)
[2018-01-01] MEDS: SERTRALINE 25 MG TABLET PO SCH (10:20)
[2018-01-01] MEDS: amLODIPine 10 MG TABLET PO SCH (10:20)
[2018-01-01] MEDS: PENTOXIFYLLINE 400 MG TABLET PO SCH ×2 (10:20→21:14)
[2018-01-01] MEDS: METOPROLOL SUCCINATE XL 25 MG TABLET PO SCH (10:20)
[2018-01-01] MEDS: PANTOPRAZOLE 40 MG TABLET PO SCH (10:26)
[2018-01-01] MEDS: GABAPENTIN 100 MG CAPSULE PO SCH ×2 (10:26→21:14)
[2018-01-01] MEDS: MAGNESIUM CHLORIDE 64 MG TABLET PO SCH (10:26)
[2018-01-01] MEDS: VANCOMYCIN INJ 1,000 MG in SODIUM CHLORIDE 0.9% 250 ML IV SCH (12:39)
[2018-01-01] MEDS: ENOXAPARIN 40 MG/0.4 ML SYRINGE SUBCUT SCH (21:14)
[2018-01-02] MEDS: SODIUM CHLORIDE 0.45% 1,000 ML IV SCH (02:15)
[2018-01-02 07:59] VITALS: BP 161/89
[2018-01-02] MEDS: INSULIN REGULAR 100 UNIT/ML SUBCUT SCH (08:16)
[2018-01-02] MEDS: MAGNESIUM CHLORIDE 64 MG TABLET PO SCH (08:19)
[2018-01-02] MEDS: SERTRALINE 25 MG TABLET PO SCH (08:19)
[2018-01-02] MEDS: amLODIPine 10 MG TABLET PO SCH (08:19)
[2018-01-02] MEDS: PENTOXIFYLLINE 400 MG TABLET PO SCH (08:19)
[2018-01-02] MEDS: PANTOPRAZOLE 40 MG TABLET PO SCH (08:19)
[2018-01-02] MEDS: METOPROLOL SUCCINATE XL 25 MG TABLET PO SCH (08:19)
[2018-01-02] MEDS: GABAPENTIN 100 MG CAPSULE PO SCH (08:19)
== END 2018-01-02 10:40 | disposition swing bed (61) | DRG 240 ==
LOC: N.ED 14:18 → N.EDINP 18:01 → N.3E 18:57
PROVIDERS: ADMIT Internal Medicine; ATTEND Internal Medicine